=== PATIENT | female | born 1985 | race African-American/Black ===

== ENCOUNTER 2016-09-29 16:55 | Emergency (ER) | payer MEDICAID ==
[~2016-09-29] VITALS: Ht 162.6 cm; Wt 91.0 kg
[2016-09-29 17:00] VITALS: BP 130/89
[2016-09-29] MEDS ORDERED: BACITRACIN ZINC OINT UDPKT TOP ONE (18:15)
== END 2016-09-29 18:42 | disposition home or self-care (01) ==
LOC: ER 16:56
DX: S61.012A Laceration without foreign body of left thumb without damage to nail, initial encounter (principal); I10 Essential (primary) hypertension; W26.8XXA Contact with other sharp object(s), not elsewhere classified, initial encounter; Y93.89 Activity, other specified; Y92.010 Kitchen of single-family (private) house as the place of occurrence of the external cause; Y99.9 Unspecified external cause status
CPT/HCPCS: 99283; X7700

== ENCOUNTER 2018-12-24 17:18 | Emergency (ER) | payer MEDICAID ==
[~2018-12-24] VITALS: Ht 160 cm; Wt 88.0 kg
[2018-12-24 17:19] VITALS: BP 146/86
== END 2018-12-25 18:41 | disposition left against medical advice (07) ==
LOC: ER 17:18
DX: Z53.21 Procedure and treatment not carried out due to patient leaving prior to being seen by health care provider (principal)